=== PATIENT | male | born 1980 | race Caucasian/White ===

== ENCOUNTER → 2025-01-04 06:20 | Day surgery (SDC) | payer BC, SELFPAY | LOC: GI 06:20 | PROVIDERS: ATTENDING PHYSICIAN Internal Medicine Gastroenterology | DX: Z86.0100 Personal history of colon polyps, unspecified (principal); R12 Heartburn; Z53.9 Procedure and treatment not carried out, unspecified reason | CPT/HCPCS: 45380; 43239; G0378 ==

== ENCOUNTER 2025-04-19 06:28 | Day surgery (SDC) | payer BC, SELFPAY | END 2025-04-19 13:12 | disposition home or self-care (01) | LOC: GI 06:28 | PROVIDERS: ATTENDING PHYSICIAN Internal Medicine Gastroenterology | DX: Z12.11 Encounter for screening for malignant neoplasm of colon (principal); K64.8 Other hemorrhoids; Z86.0100 Personal history of colon polyps, unspecified; R12 Heartburn | CPT/HCPCS: 43235; G0105 ==